=== PATIENT | female | born 1985 | race Caucasian/White ===

== ENCOUNTER 2017-12-06 16:31 | Emergency (ER) | payer OTHER ==
[2017-12-06 16:42] VITALS: BP 114/67; PULSE 79; RESP 16; TEMP 98.4; O2SAT 99
[2017-12-06 18:05] LABS: BASO % 0.6 % (0.0-2.0); EOS # 0.1 K/uL (0.0-0.7); EOS % 1.6 % (0.0-4.0); HEMOGLOBIN 10.6 g/dL (12.0-16.0); LYMPH # 1.9 K/uL (1.0-4.3); LYMPH % 24.6 % (20.0-40.0); MEAN CELL VOLUME 78.8 fl (81.0-99.0); MEAN CORPUSCULAR HEMOGLOBIN 25.4 pg (27.0-31.0); MEAN CORPUSCULAR HGB CONC 32.2 g/dL (33.0-37.0); MEAN PLATELET VOLUME 9.3 fl (7.2-11.7); MONO # 0.6 K/uL (0.0-0.8); MONO % 8.2 % (0.0-10.0); RBC 4.2 Mil/uL (3.80-5.20); RED CELL DISTRIBUTION WIDTH 16.1 % (11.5-14.5); WHITE BLOOD COUNT 7.7 K/uL (4.8-10.8)
[2017-12-06 18:19] LABS: ALB/GLOB RATIO 1.1 (1.0-2.1); ALBUMIN 4.3 g/dL (3.5-5.0); ALT/SGPT 31 U/L (9-52); AMYLASE 76 U/L (30-110); AST/SGOT 29 U/L (14-36); BLOOD UREA NITROGEN 16 mg/dl (7-17); CALCIUM 9.6 mg/dL (8.4-10.2); GFR NON-AFRICAN AMERICAN > 60; LIPASE 117 U/L (23-300)
[2017-12-06 18:31] LABS: SQUAMOUS EPITHIAL 7 /hpf (0-5); URINE BACTERIA RARE (<OCC); URINE BILIRUBIN NEGATIVE (NEGATIVE); URINE BLOOD SMALL (NEGATIVE); URINE CLARITY SLIGHTY-CLOUDY (Clear); URINE COLOR STRAW (YELLOW); URINE GLUCOSE (UA) NEG (Normal); URINE LEUKOCYTE ESTERASE NEG Leu/uL (Negative); URINE PROTEIN NEGATIVE (NEGATIVE); URINE UROBILINOGEN 0.2-1.0 mg/dL (0.2-1.0)
--- NOTE | 2017-12-06 19:06 | ED PDOC ---
HPI: General Adult Chief Complaint (Provider): Needle Stick History Per: Patient History/Exam Limitations: no limitations Onset/Duration Of Symptoms: Hrs Current Symptoms Are (Timing): Better Additional Complaint(s): 32 year old female presents to the ER for an evaluation of needlestick injury at work. 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 She states she cleaned the area thoroughly. <Erin Comer - Last Filed: 12/06/17 23:22> <Jaden Acosta - Last Filed: 12/08/17 14:43> Time Seen by Provider: 12/06/17 16:48 Chief Complaint (Nursing): Needle Stick Past Medical History Reviewed: Historical Data, Nursing Documentation, Vital Signs Vital Signs: Last Vital Signs Temp 98.4 F 12/06/17 16:39 Pulse 79 12/06/17 16:39 Resp 16 12/06/17 16:39 BP 114/67 12/06/17 16:39 Pulse Ox 99 12/06/17 16:39 - Medical History PMH: No Chronic Diseases - Family History Family History: States: Unknown Family Hx <Erin Comer - Last Filed: 12/06/17 23:22> Vital Signs: Last Vital Signs Temp 98.4 F 12/06/17 16:39 Pulse 79 12/06/17 16:39 Resp 16 12/06/17 16:39 BP 114/67 12/06/17 16:39 Pulse Ox 99 12/06/17 23:24 <Jaden Acosta - Last Filed: 12/08/17 14:43> - Home Medications Home Medications: Ambulatory Orders Medication Instructions Recorded Dolutegravir Sodium [Tivicay] 50 mg PO DAILY #30 tab 12/06/17 Emtricitabine/Tenofovir (Tdf) 1 each PO DAILY 30 Days #30 tablet 12/06/17 [Truvada 200 mg-300 mg Tablet] - Allergies Allergies/Adverse Reactions: Allergies Allergy/AdvReac Type Severity Reaction Status Date / Time Sulfa (Sulfonamide Allergy RASH Verified 12/06/17 16:38 Antibiotics) Review of Systems ROS Statement: Except As Marked, All Systems Reviewed And Found Negative Musculoskeletal: Positive for: Other (needlestick injury on left thumb) <Erin Comer - Last Filed: 12/06/17 23:22> Physical Exam - Reviewed Nursing Documentation Reviewed: Yes Vital Signs Reviewed: Yes - Physical Exam Appears: Positive for: Well, Non-toxic, No Acute Distress Head Exam: Positive for: ATRAUMATIC, NORMAL INSPECTION, NORMOCEPHALIC Skin: Positive for: Normal Color, Warm, Dry. Negative for: Rash Eye Exam: Positive for: Normal appearance Extremity: Positive for: Normal ROM. Negative for: Tenderness, Pedal Edema, Deformity Neurologic/Psych: Positive for: Alert, Oriented (x3). Negative for: Motor/Sensory Deficits <Erin Comer S - Last Filed: 12/06/17 23:22> - Laboratory Results Result Diagrams: 12/06/17 17:45 12/06/17 17:45 - ECG O2 Sat by Pulse Oximetry: 99 (RA) Pulse Ox Interpretation: Normal <Erin Comer S - Last Filed: 12/06/17 23:22> - Laboratory Results Result Diagrams: 12/06/17 17:45 12/06/17 17:45 <Jaden Acosta - Last Filed: 12/08/17 14:43> Medical Decision Making Medical Decision Making: Time: 1714 --Amylase --CMP --Hepatitis B core AB --Hepatitis B Surface AG --Hepatitis C antibody --Lipase --ED Urine --Hepatitis B Surface AB, QN --Rapid HIV --Rapid Plasma Reagin --Urinalysis --Reevaluation Case discussed with infectious disease, Dr. Herrera who agrees with initial labs today and starting PEP; he will f/u with her in office in 4 weeks. Patient a dvised to follow up at Dr. Campbell's office in 4 weeks. Patient was also prescribed Truvada and Tivicay as per protocol. Scribe Attestation: Documented by Jhony Cabrera, acting as a scribe for Erin Comer PA-C. Provider Scribe Attestation: All medical record entries made by the Scribe were at my direction and personally dictated by me. I have reviewed the chart and agree that the record accurately reflects my personal performance of the history, physical exam, medical decision making, and the department course for this patient. I have also personally directed, reviewed, and agree with the discharge instructions and disposition. <Erin Comer - Last Filed: 12/06/17 23:22> Disposition Discussed With : Sharon Doctor Will See Patient In The: Office Counseled Patient/Family Regarding: Need For Followup - Disposition Disposition: Routine/Home Disposition Time: 19:08 <Erin oCmer - Last Filed: 12/06/17 23:22> <Jaden Acosta - Last Filed: 12/08/17 14:43> - Clinical Impression Clinical Impression: Needle stick injury - Disposition Referrals: Nakul Herrera MD [Staff Provider] - Condition: STABLE Prescriptions: Dolutegravir Sodium [Tivicay] 50 mg PO DAILY #30 tab Emtricitabine/Tenofovir (Tdf) [Truvada 200 mg-300 mg Tablet] 1 each PO DAILY 30 Days #30 tablet Instructions: Preventing HIV After Unprotected Sex or Needle-Sharing Forms: [facility] (Japanese) Addendum Addendum: 12/08/17 14:42 Reviewed Pa chart and agree. <Jaden Acosta - Last Filed: 12/08/17 14:43>
[2017-12-07 13:01] LABS: HEPATITIS B SURFACE AG Negative (NEGATIVE)
[2017-12-07 13:06] LABS: HEPATITIS B CORE AB NEGATIVE (NEGATIVE)
[2017-12-07 13:18] LABS: HEPATITIS C ANTIBODY NEGATIVE (NEGATIVE)
== END 2017-12-06 19:43 | disposition home or self-care (01) ==
LOC: H.ER 16:31
DX: S61.032A Puncture wound without foreign body of left thumb without damage to nail, initial encounter (principal); W46.0XXA Contact with hypodermic needle, initial encounter; Y99.0 Civilian activity done for income or pay